=== PATIENT | female | born 1940 | race Caucasian/White ===

== ENCOUNTER → 2021-04-14 15:02 | Outpatient (CLI) | payer MEDICARE, SELFPAY ==
--- NOTE | ~2021-04-14 | XR_ITS ---
XR lumbar spine 2-3V DATE: 04/14/2021 15:38 INDICATION: Lumbar back pain, radiculopathy TECHNIQUE: AP, lateral, coned lateral lumbosacral views COMPARISON: None FINDINGS: There is diffuse osteopenia. The lumbar vertebrae are normally aligned, without evidence of fracture or bone destruction. The lumb ar pedicles appear intact. There is moderate to moderately severe degenerative disc disease of the lumbar and lumbosacral area, most pronounced at L1-2, L2-3 and L5-S1. The sacroiliac joints are intact. IMPRESSION: Osteopenia Multilevel degenerative disc disease Reviewed, dictated and finalized at location A. FILLING MACHINE OPERATOR
--- NOTE | ~2021-04-14 | XR_ITS ---
XR thoracic spine 3V DATE: 04/14/2021 15:38 INDICATION: Back pain, thoracic and lumbar area, with radiculopathy TECHNIQUE: AP, lateral and swimmer views COMPARISON: None FINDINGS: There is diffuse osteopenia. There is mild dextroscoliosis of the thoracic spine. There is diffuse idiopathic skeletal hyperostosis of the mid and lower thoracic spine. No fracture or bone destruction of the thoracic spine is evident. The thoracic pedicles are intact There is degenerative disc disease of the mid and particularly lower cervical spine. Cardiomegaly. IMPRESSION: Diffuse osteopenia Mild thoracic dextro scoliosis Diffuse idiopathic skeletal hyperostosis of the thoracic spine Reviewed, dictated and finalized at location A. UTER INFORMATION SCIENCE PROFESSOR
== END ==
PROVIDERS: PCP Physician Assistant; Visit Provider Physician Assistant
DX: M54.50 Low back pain, unspecified (principal); M54.14 Radiculopathy, thoracic region; M85.88 Other specified disorders of bone density and structure, other site; M51.36 Other intervertebral disc degeneration, lumbar region; M41.84 Other forms of scoliosis, thoracic region; M48.14 Ankylosing hyperostosis [Forestier], thoracic region
CPT/HCPCS: 72072; 72100